=== PATIENT | male | born 1975 | race African-American/Black ===

== ENCOUNTER 2024-12-19 09:50 | Outpatient (REF) | payer OTHER, SELFPAY ==
--- OUTSIDE RECORDS SUMMARY | 2024-12-19 10:14 | XMS_ITS | Encounter Summary ---
Author Organization [employer] Address [address] [facility] [address] [place] [address] Care Team Providers Care Tuber Machine Operator Name Role Phone Ynes Seals MD Primary Care Provide r Encounter Details Date Type Department Care Team (Late st Contact Info) Description 01/16/2023 Orders Only [facility] [address] [place] [address] Nalini Burt LPN Social History Tobacco Use Types Packs/Day Years Used Date Smoking Tobacco: Never Assessed Sex and Gender Information Value Date Recorded Sex Assigned at Male 06/09/2022 10:37 AM EDT Legal Sex Male 10:37 AM EDT Gender Identity Male 06/09/2022 10:37 AM EDT Sexual Orientation Choose not to disclose 2021 10:37 AM EDT documented as of this encounter Plan of Treatment Not on file documented as of this encounter Visit Diagnoses Not on filedocumented in this encounter Care Teams Tuber Machine Operator Relationship Specialty Start Date End Date Ynes Seals MD [address] [place] [id number] PCP - General Family Medicine 07/12/20 documented as of this encounter
--- OUTSIDE RECORDS SUMMARY | 2024-12-19 10:14 | XMS_ITS | Clinical Summary ---
Author Organization [employer] Address [address] [facility] [address] [place] [address] Care Team Providers Care Inclusion Internship Name Role Phone Ynes Saels MD Primary Care Provide r Allergies No known active allergies Medications amLODIPine (Norvasc) 10 MG tablet TAKE 1 TABLET BY MOUTH EVERY DAY 90 tablet 1 01/07/2024 Active Active Problems Problem Noted Date Diagnosed Date Right thigh pain 01/07/2024 Assessment & Plan (01/07/2024 2:33 PM EDT): Patient here for a sick visit with c/o 9/10 right thigh and knee pain. Difficulty walking and bearing weight. Pt sustained a direct blow to his right thigh 8 days ago while playing soccer, since then he has experienced worsening swelling and pain that now radiates down to his right knee, associated with difficulty walking and weight bearing On exam his right thigh is swollen when compared to the left, there is tenderness to palpation right knee is warmth and swollen and there is anterior tenderness, there is 1 + pitting edema right lower extremity. There is decreased rom right knee Etiology? Given Hx of direct trauma to the thigh with subsequent swelling and worsening pain I am concerned about a stress fracture, internal knee derangement, early compartmental Syndrome, septic joint, DVT ? Given that pt requires multiple x-rays, a LE US a CBC, CPK, and a knee tap. He needs to be evaluated in the ER. Pt agreeable although he refused transport via ambulance, and declined a cab or for us to call his family member to drive him. He promised he would go [place] [facility] [place] and he stated that he would drive himself even though I discouraged him from doing that. I explained to him that I am very concerned and that he needs to be evaluated today. He promised to go to the ER today Encounters Date Type Department Care Team Description 12/12/2024 Orders Only [facility] [address] [place] [address] Ynes Seals MD Tuberculosis screening (Primary Dx) 12/10/2024 Telephone [facility] [address] [place] [address] Ynes Seals MD from Last 3 Months Social History Tobacco Use Types Packs/Day Years Used Date Smoking Tobacco: Never Passive Smoke Exposure: Never Smokeless Tobacco: Never Tobacco Cessation:Counseling Given: Not Answered Sex and Gender Information Value Date Recorded Sex Assigned at Male 06/09/2022 10:37 AM EDT Legal Sex Male 10:37 AM EDT Gender Identity Male 06/09/2022 10:37 AM EDT Sexual Orientation Choose not to disclose 2021 10:37 AM EDT Last Filed Vital Signs Vital Sign Reading Time Taken Comments Blood Pressure 170/110 01/07/2024 2:06 PM EDT pt states he didn't take his meds this morning Pulse 91 01/07/2024 2:06 PM EDT Temperature 36.4 ??C (97.5 ??F) 01/07/2024 2 :06 PM EDT Respiratory Rate 17 01/07/2024 2:06 PM EDT Oxygen Saturation - - Inhaled Oxygen Concentration - - Weight 94.7 kg (208 lb 12.8 oz) 01/07/2024 2:06 PM EDT Height 176 cm (5' 9.29 ) 01/07/2024 2:0 6 PM EDT Body Mass Index 30.58 01/07/2024 2:06 PM EDT Plan of Treatment Health Maintenance Due Date Last Done Comments CT Colonography 1976 Colonoscopy 1976 Colorectal Cancer Screening 1976 Depression Screening 1976 FIT DNA/Cologuard 1976 FIT 1976 FOBT 1976 HIV Screening 1976 SDOH Screening 1976 Sigmoidoscopy 1976 Alcohol/Substance Use Screening 1988 Family Planning (PISQ) 1991 Hepatitis C Screening 1994 COVID-19 Vaccine (4 - 2023-2 5 season) 2024 09/03/2021, 01/18/2021, 12/21/2020 Influenza Vaccine (#1) 2024 , 06/19/2021, 07/18/2020 Tobacco Screening 01/06/2025 01/07/2024 Lipid Panel 07/20/2025 07/20/2020 Zoster Vaccines (1 of 2) 2026 DTaP/Tdap/Td Vaccines (2 - T d or Tdap) 06/19/2031 06/19/2021 RSV Patients and Patients Aged 60 years or older (1 - 1-dose 75+ series) 2051 Hepatitis B Vaccines Completed 07/22/2021, 04/26/2021, 03/29/2021 HIB Vaccines Aged Out No longer eligi ble based on patient's age to complete this topic HPV Vaccines Aged Out No longer eligi ble based on patient's age to complete this topic Hepatitis A Vaccines Aged Out No long er eligible based on patient's age to complete this topic IPV Vaccines Aged Out No longer eligi ble based on patient's age to complete this topic Meningococcal Vaccine Aged Out No janny paulino eligible based on patient's age to complete this topic Pneumococcal Vaccine: Pediatrics (0 to 5 Years) and At-Risk Patients (6 to 49) Years) Aged Out No longer eligible b ased on patient's age to complete this topic RSV under 20 months Aged Out No longe r eligible based on patient's age to complete this topic Rotavirus Vaccines Aged Out No longer eligible based on patient's age to complete this topic Procedures Procedure Name Priority Date/Time Associated Diagnosis Comments LIPID PANEL, STANDARD Routine 07/20/2020 11:44 AM EST from Last 3 Months or Most Recently Relevant to Health Maintenance Results * (ABNORMAL) LIPID PANEL, STANDARD (07/20/2020 11:44 AM EST) Chol/HDLC Ratio 3.9 <5.0 (calc) [facility] Cholesterol, Total 171 <200 mg/dL [facility] HDL Cholesterol 44 > OR = 40 mg/dL [facility] LDL Cholesterol 111(H) mg/dL (calc) [facility] Comment: Reference range: <100 ?? Desirable range <100 mg/dL for primary prevention; ?? <70 mg/dL for patients with CHD or diabetic patients ?? with > or = 2 CHD risk factors. ?? LDL-C is now calculated using the Lionel ?? calculation, which is a validated novel method providing ?? better accuracy than the Friedewald equation in the ?? estimation of LDL-C. ?? Julio Cesar JARQUIN et al. LENIN. 2013;310(19): 4941-1287 ?? (http://[employer].babbel/faq/YSO542) Non-HDL Cholesterol 127 <130 mg/dL (calc) [facility] Comment: For patients with diabetes plus 1 major ASCVD risk ?? factor, treating to a non-HDL-C goal of <100 mg/dL ?? (LDL-C of <70 mg/dL) is considered a therapeutic ?? option. Triglycerides 69 <150 mg/dL [facility] 07/20/2020 11:4 4 AM EST us Keri Torres MD LAB BLOOD ORDERABLES Final Res ult [facility] [address] from Last 3 Months or Most Recently Relevant to Health Maintenance Insurance Care Teams Inclusion Internship Relationship Specialty Start Date End Date Ynes Seals MD [address] [place] [id number] PCP - General Family Medicine 07/12/20
[2024-12-21 23:19] LABS: TS Negative Control Passed; TS Panel A 0; TS Panel B 0; TS Positive Control Passed; TSpotTB Negative (Negative)
== END 2024-12-19 09:51 | disposition home or self-care (01) ==
LOC: HO.HHCL 09:50
PROVIDERS: Visit Provider Internal Medicine
DX: Z11.1 Encounter for screening for respiratory tuberculosis (principal)
CPT/HCPCS: 36415; 86481